=== PATIENT | female | born 1940 | race Caucasian/White ===

== ENCOUNTER → 2016-11-29 | Outpatient (CLI) | payer MEDICARE ==
[~2016-11-29] MED LIST: ALPR0.5T3 PO; CITRTAB7 PO; LISI-515 PO; LOVA40TA PO; METO50TA11 PO; MIRA33504 PO; OMEP40CA2 PO; RANI150T PO; SERT-129 PO; ULTR50TA5 PO; ZETI10TA5 PO
[2016-11-29 12:14] LABS: AUTOMATED NEUTROPHIL # 2.9 TH/MM3 (1.8-7.7); BASOPHIL % 0.3 % (0.0-2.0); EOSINOPHIL # 0.1 TH/MM3 (0-0.4); EOSINOPHIL % 1.3 % (0.0-4.0); HEMATOCRIT 36.9 % (35.0-46.0); HEMO FLAGS DIFF FINAL; LYMPH % 27.8 % (9.0-44.0); LYMPHOCYTE # 1.3 TH/MM3 (1.0-4.8); MEAN CELL VOLUME 83.2 FL (80.0-100.0); MEAN CORPUSCULAR HEMOGLOBIN 27.4 PG (27.0-34.0); MEAN CORPUSCULAR HGB CONC 32.9 % (32.0-36.0); NEUT % 61.6 % (16.0-70.0); PLATELET COUNT 187 TH/MM3 (150-450); RED BLOOD COUNT 4.43 MIL/MM3 (4.00-5.30); RED CELL DISTRIBUTION WIDTH 14.3 % (11.6-17.2); WHITE BLOOD COUNT 4.6 TH/MM3 (4.0-11.0)
[2016-11-29 12:20] LABS: APTT (PATIENT) 24.3 SEC (24.3-30.1); INTERNATIONAL NORMALIZED RATIO 0.9 RATIO; PROTHROMBIN TIME - PATIENT 10.1 SEC (9.8-11.6)
[2016-11-29 12:44] LABS: ALKALINE PHOSPHATASE 39 U/L (45-117); ALT (GPT) 21 U/L (10-53); ANION GAP 6 MEQ/L (5-15); AST (GOT) 19 U/L (15-37); BICARBONATE 30.3 MEQ/L (21.0-32.0); BLOOD UREA NITROGEN 20 MG/DL (7-18); CHLORIDE 105 MEQ/L (98-107); GLOMERULAR FILTRATION RATE 70 ML/MIN (>89); GLUCOSE,FASTING 86 MG/DL (74-99); POTASSIUM 4.1 MEQ/L (3.5-5.1); SODIUM (NA) 141 MEQ/L (136-145); TOTAL BILIRUBIN ADULT 0.6 MG/DL (0.2-1.0)
--- NOTE | 2016-11-29 13:18 | RADRPT ---
EXAM DATE/TIME: 11/29/2016 12:34 [place] COMPARISON: No previous studies available for comparison. INDICATIONS : Evaluate for pneumonia, pneumothorax, or communicable disease. Pre op for ovarian surgery. Patient s tated no chest complaints at this time. MEDICAL HISTORY : None. SURGICAL HISTORY : None. ENCOUNTER: Initial ACUITY: 1 day PAIN SCORE: 0/10 LOCATION: Bilateral chest FINDINGS: PA and lateral views of the chest demonstrate a normal-sized cardiac silhouette. There is no effusion , consolidation, or pneumothorax. The bones and soft tissues demonstrate no acute abnormality. Cholec ystectomy clips are present. CONCLUSION: No acute cardiopulmonary abnormality is identified. Pavel Titus MD on November 29, 2016 at 13:15 Board Certified Radiologist. This report was verified electronically.
--- NOTE | 2016-11-30 10:46 | EKG ---
Date Performed: 11/29/2016 Time Performed: 11:56:37 PTAGE: 76 years EKG: Sinus rhythm NORMAL ECG NO PREVIOUS TRACING DOCTOR: Octavia Hassan Interpretating Date/Time 11/30/2016 10:43:44
== END ==
LOC: CPRE 11:19
PROVIDERS: ATTEND Obstetrics & Gynecology Gynecologic Oncology
DX: Z01.810 Encounter for preprocedural cardiovascular examination (principal); R19.05 Periumbilic swelling, mass or lump; Z01.812 Encounter for preprocedural laboratory examination; Z01.818 Encounter for other preprocedural examination
CPT/HCPCS: 36415; 71020; 80053; 85025; 85610; 85730; 93005

== ENCOUNTER 2016-12-22 08:35 | Observation (INO) | payer MEDICARE ==
[~2016-12-22] VITALS: Ht 152.4 cm; Wt 56.3 kg
[~2016-12-22 08:35] MED LIST changes: -ULTR50TA5 PO
[2016-12-22] MEDS ORDERED: HEPARIN SODIUM - SQ 10,000 UNITS/ML VIAL SQ SCH (09:00)
[2016-12-22] MEDS ORDERED: LEVOFLOXACIN 500 MG PREMIX INJ 100 ML IV SCH (09:00)
[2016-12-22] MEDS ORDERED: METRONIDAZOLE 500 MG/100 ML ISONTONIC SOLN IV SCH (09:00)
[2016-12-22] MEDS ORDERED: POVIDONE IODINE 5% (ANTISEPSIS KIT) 4 APPLICATIONS EACH NARE PRN (09:15)
[2016-12-22] MEDS ORDERED: METOPROLOL TARTRATE 25 MG TAB PO PRN (09:15)
[2016-12-22] MEDS ORDERED: LACTATED RINGER'S 1000 ML IV PRN (09:15)
[2016-12-22] MEDS ORDERED: SODIUM CHLORID 0.9% 500 ML IV PRN (09:15)
[2016-12-22] MEDS ORDERED: INSULIN HUMAN REGULAR 1,000 UNITS/10 ML VIAL SQ PRN (09:15)
[2016-12-22] MEDS ORDERED: CHLORHEXIDINE GLUCONATE 2 % 1 PACK (2 CLOTHS) TOPICAL PRN (09:15)
[2016-12-22 09:26] VITALS: BP 144/66; PULSE 69; RESP 16; TEMP 98.4; O2SAT 97
[2016-12-22] MEDS ORDERED: ONDANSETRON HCL 4 MG/2 ML VIAL IV PUSH ONE (10:02)
[2016-12-22] MEDS ORDERED: KETOROLAC TROMETHAMINE 60 MG/2 ML (IM) VIAL IM ONE (10:02)
[2016-12-22] MEDS ORDERED: ePHEDrine/NS 25 MG/5 ML SYR IV ONE (10:02)
[2016-12-22] MEDS ORDERED: PROPOFOL 200 MG/20 ML AMP IV ONE (10:02)
[2016-12-22] MEDS ORDERED: NORMOSOL R INJ 1,000 ML IV ONE (10:03)
[2016-12-22] MEDS ORDERED: LIDOCAINE 1%/EPINEPHrine 1:100,000 SOLN 50 ML VIAL ONE (10:45)
[2016-12-22] MEDS ORDERED: ACETAMINOPHEN 1000 MG/100 ML VIAL IV ONE (10:56)
[2016-12-22] MEDS ORDERED: SUGAMMADEX SODIUM 200 MG/2 ML VIAL IV PUSH ONE ×2 (10:56)
[2016-12-22] MEDS ORDERED: FAMOTIDINE 20 MG/2 ML VIAL ONE (10:56)
[2016-12-22] MEDS ORDERED: HYDROmorphone HCL PF 2 MG/ML VIAL ONE (10:57)
[2016-12-22] MEDS ORDERED: fentaNYL CITRATE 250 MCG/5 ML AMP ONE (14:58)
[2016-12-22] MEDS ORDERED: ONDANSETRON HCL 4 MG/2 ML VIAL IVP PRN (15:15)
[2016-12-22] MEDS ORDERED: ALPRAZolam 0.5 MG TAB PO PRN (15:15)
[2016-12-22] MEDS ORDERED: diphenhydrAMINE HCL 25 MG CAP PO PRN (15:15)
[2016-12-22] MEDS ORDERED: SODIUM CHLORIDE 0.9% FLUSH 10 ML FLUSH IV FLUSH PRN (15:15)
[2016-12-22] MEDS ORDERED: DO NOT ADM ANY ANTICOAGULANT DRUGS PRN (15:25)
[2016-12-22] MEDS ORDERED: *HYDROmorphone PF 1 MG VIAL PERIprocedural Use ONLY ONE (15:55)
[2016-12-22 16:00] VITALS: BP 138/66; PULSE 80; RESP 16; TEMP 97.5; O2SAT 98
[2016-12-22] MEDS ORDERED: D5-1/2 NS + KCL 20 MEQ INJ 1,000 ML IV SCH (16:00)
[2016-12-22] MEDS: KETOROLAC TROMETHAMINE 30 MG/ML (IVP) VIAL IVP SCH ×2 (16:00→21:50)
[2016-12-22] MEDS: traMADol HCL 50 MG TAB PO PRN ×2 (17:54→21:49)
[2016-12-22 20:00] VITALS: BP 139/64; PULSE 84; RESP 16; TEMP 97.8; O2SAT 98
[2016-12-22] MEDS: SODIUM CHLORIDE 0.9% FLUSH 10 ML FLUSH IV FLUSH SCH (20:26)
[2016-12-23] VITALS: BP 141/70; PULSE 78; RESP 15; TEMP 98.9; O2SAT 98
[2016-12-23] MEDS: traMADol HCL 50 MG TAB PO PRN (02:04)
[2016-12-23 04:00] VITALS: BP 124/51; PULSE 79; RESP 15; TEMP 97.3; O2SAT 98
[2016-12-23] MEDS: KETOROLAC TROMETHAMINE 30 MG/ML (IVP) VIAL IVP SCH ×2 (04:50→09:40)
[2016-12-23 06:57] LABS: AUTOMATED NEUTROPHIL # 5.8 TH/MM3 (1.8-7.7); BASOPHIL % 0.1 % (0.0-2.0); HEMATOCRIT 30.8 % (35.0-46.0); HEMO FLAGS DIFF FINAL; LYMPH % 8.4 % (9.0-44.0); LYMPHOCYTE # 0.6 TH/MM3 (1.0-4.8); MEAN CELL VOLUME 82.8 FL (80.0-100.0); MEAN CORPUSCULAR HEMOGLOBIN 28.3 PG (27.0-34.0); MEAN CORPUSCULAR HGB CONC 34.2 % (32.0-36.0); MONO % 9.3 % (0.0-8.0); NEUT % 82.2 % (16.0-70.0); PLATELET COUNT 148 TH/MM3 (150-450); RED BLOOD COUNT 3.72 MIL/MM3 (4.00-5.30); RED CELL DISTRIBUTION WIDTH 14.8 % (11.6-17.2)
[2016-12-23] MEDS ORDERED: ULTR50TA5 PO (07:25)
[2016-12-23 07:27] LABS: BICARBONATE 26.9 MEQ/L (21.0-32.0); POTASSIUM 3.7 MEQ/L (3.5-5.1)
[2016-12-23 08:00] VITALS: BP 131/56; PULSE 67; RESP 16; TEMP 97.6; O2SAT 92
[2016-12-23] MEDS ORDERED: METOPROLOL SUCCINATE 50 MG EXTENDED RELEASE TAB PO SCH (09:00)
[2016-12-23] MEDS ORDERED: LISINOPRIL 20 MG TAB PO SCH (09:00)
[2016-12-23] MEDS ORDERED: PANTOPRAZOLE SOD 40 MG DELAYED RELEASE TAB PO SCH (09:00)
[2016-12-23] MEDS ORDERED: PRAVASTATIN SOD 40 MG TAB PO SCH (09:00)
[2016-12-23] MEDS ORDERED: EZETIMIBE 10 MG TAB PO SCH (09:00)
[2016-12-23] MEDS ORDERED: SERTRALINE HCL 100 MG TAB PO SCH (09:00)
[2016-12-23] MEDS ORDERED: FAMOTIDINE 20 MG TAB PO SCH (09:00)
[2016-12-23] MEDS: SODIUM CHLORIDE 0.9% FLUSH 10 ML FLUSH IV FLUSH SCH (09:40)
[2016-12-23 09:45] VITALS: BP 124/64
--- NOTE | 2016-12-26 11:38 | MP ---
cc: CELY WOOD MD, KELLY L. MD DATE OF SURGERY 12/22/2016 PREOPERATIVE DIAGNOSIS Complex pelvic mass, prominent uterus. POSTOPERATIVE DIAGNOSES 1. Right ovarian mature cystic teratoma (ruptured). 2. Uterine leiomyomas. 3. Extensive intraperitoneal and pelvic adhesions. PROCEDURE Laparoscopy with extensive lysis of adhesions, robotic-assisted laparoscopic hysterectomy, bilateral salpingo-oophorectomy and extensive lysis of adhesions. SURGEON kAua Ren MD FOAM CASTER Barry heel sprayer first. ANESTHESIA General endotracheal anesthesia. ESTIMATED BLOOD LOSS 200 cc. IV FLUIDS 2400 cc. URINE OUTPUT 650 cc. INTRAPERITONEAL IRRIGATION 5000 cc. HISTORY A 76-year-old female found on exam and imaging to have a complex approximately 4 cm pelvic mass. It did have some radiographic features suggestive of a dermoid. She has been counseled regarding options of clinical and radiographic followup versus surgical intervention. She had presented to the emergency room with fairly acute onset of significant pain; that is when the mass was diagnosed. She has been counseled. She favors definitive surgery. Irrespective of the pathology, she wants a complete hysterectomy. She understands with her prior surgical history we anticipate adhesions. She is seen in the preop holding area where she is again counseled. Her questions were answered. She expresses good understanding and agrees. FINDINGS Upon entry into the peritoneal cavity the omentum is densely adherent to the anterior abdominal wall in multiple locations. She had had prior midline vertical incision as well as laparoscopic gallbladder surgery and the omental adhesions were development representative of these prior surgeries. There were adhesions in the right lower quadrant near the ileocecal region in the pelvis. There was a right ovarian mass approximately 4 cm affixed to the right pelvic sidewall and posterior cul-de-sac. There was capsular disruption with some thick mucinous fluid leaking in the cul-de-sac. It had other characteristics suggestive of a mature teratoma. The cul-de-sac was partially obliterated. The colon was adherent to the left pelvic sidewall and the bladder was densely adherent to the uterus consistent with prior sections. Also the uterus was prominent with multiple small leiomyomas, enlarged relative to the narrow nulliparous pelvic outlet. The peritoneal cavity was without implants. The liver diaphragm edges were smooth. The omentum, large small bowel and adjacent mesentery were normal in that there were no implants, no adenopathy. There were colonic diverticulum without diverticulitis. Frozen section analysis of the ovary showed it to be a mature cystic teratoma. The uterus had leiomyomas, no evidence of malignancy. STATEMENT OF COMPLEXITY The complexity of this case was increased and the surgical time was significantly extended due to extensive adhesions. A significant amount of time was required to lyse adhesions to gain safe access to the peritoneal cavity, to restore normal anatomy and to accomplish surgical objectives. Modifier should be applied accordingly. PROCEDURE The patient was taken to the operating room, placed in dorsal lithotomy position. After general endotracheal anesthesia was administered, time-out was undertaken. The patient was identified by sight recognition and hospital ID bracelet and the proposed procedure was reviewed and confirmed. She was carefully positioned in padded Wild stirrups. Her arms were padded and secured to the side. She was further secured to the operating table with eggcrate padding and tape in across-chest, rsee-yra-pighoggy fashion. All sites were noted to be properly aligned with no malalignments or pressure points. She was carefully prepped and draped below the waist, placed in high lithotomy position. Small right-angle retractors were used for visualization as a normal-size speculum could not be used due to the narrow outlet from a nulliparous pelvis. The cervix was identified, grasped, the uterine cavity was sounded and a small V-Care manipulator was inserted and secured in the usual fashion, a Elizabeth catheter placed in the bladder. She was returned to low lithotomy position. A change of sterile gloves was undertaken and we completed draping in anticipation of laparoscopy. We confirmed that an orogastric tube was in the stomach on suction. With manual elevation of the abdominal wall and direct laparoscopic visualization, a 5-mm cannula was placed in the left upper quadrant. Carbon dioxide gas was insufflated and an atraumatic entry was confirmed. Adhesions were noted as described above. Safe access was present in the right upper quadrant through which an 8-mm cannula was introduced. Sharp and blunt dissection were used to initiate lysis of adhesions to allow for a 12-mm cannula to be placed in the midline above the umbilicus. Additional lysis of adhesion was carried out with sharp dissection, focal point cautery, blunt dissection releasing the omentum from the multifocal attachments to the anterior abdominal wall and then an 8-mm cannula was placed in the left upper quadrant. The original 5-mm cannula was exchanged for an 8-mm cannula. She was placed in steep Trendelenburg position. Peritoneal washings were obtained for cytology. The anatomy was surveyed with findings as described above. Three Ray-Cheyenne sponges were placed around the root of the small bowel mesentery and the robotic system was brought into the operative field and attached in the usual fashion. Monopolar scissors, fenestrated bipolar forceps and ProGrasp manipulators were placed in arms #1, 2 and 3 respectively and I took my place at the surgeon's console. Additional time was spent lysing adhesions with sharp dissection to mobilize the colon from attachments to left pelvic sidewall, to free adhesions from the cul-de-sac, to mobilize the ovary that was fixed against the right sidewall and cul-de-sac. Capsular rupture with fluid leak was noted, so as the ovary was mobilized, it was wrapped within a Ray-Cheyenne sponge to prevent further spills after it was had been detached. The right round ligament was isolated, cauterized, transected. The anterior and posterior leaves of the broad ligament were opened. The right ureter was identified, right infundibulopelvic ligament was isolated. The intervening peritoneum was opened. The infundibulopelvic ligament was cauterized and transected. The right utero-ovarian ligament was isolated, cauterized and transected. The remaining adhesions were removed sharply to free the adnexa which, as described above, was wrapped in a Ray-Cheyenne sponge to prevent further spill or contamination and placed in the right pericolic gutter. Copious irrigation was undertaken to irrigate the pelvis before preceding with the case. The left round ligament was isolated, cauterized, transected. The anterior and posterior leaves of the broad ligament were opened. The colon was mobilized. The left ureter was identified. The left infundibulopelvic ligament was isolated. The intervening peritoneum was opened. The infundibulopelvic ligament was cauterized and transected. Vesicouterine peritoneum was dissected off the lower uterine segment and cervix. There was a very adherent band of scar tissue but the bladder could be mobilized below it. It did allow isolation of the uterine vessels which were skeletonized bilaterally, cauterized and transected as were the cardinal, paracervical and uterosacral ligaments. An additional dissection and attention was then directed toward the scarring of the bladder. Sharp dissection was used to isolate adhesions and take them down in a stepwise fashion until the bladder could be completely . Colpotomy was performed with an incision the cervix from the vagina. Prior to being able to deliver the specimen transvaginally, the uterine size needed to be reduced due to its inability to be delivered transvaginally and myomectomies x 2 were performed and the leiomyomas were placed within another Ray-Cheyenne sponge and placed in the right pericolic gutter. Now colpotomy was performed the cervix from the upper vagina. The specimen was withdrawn transvaginally which included the reduced uterus, cervix, left tube and ovary which were attached. Now an EndoCatch bag was introduced transvaginally. The right tube and ovary within the Ray-Cheyenne sponge were placed in the EndoCatch bag and the two leiomyomas were placed within the EndoCatch bag and delivered transvaginally. The remaining two Ray-Cheyenne sponges were delivered transvaginally and a pneumooccluder balloon was placed in the vagina to maintain pneumoperitoneum. Instruments 1 and 3 were exchanged for needle drivers as a 0 Vicryl suture was introduced. The vaginal cuff was closed starting at the left corner, full-thickness closure including posterior peritoneum, the uterosacral ligament tied via instrument tie. It was held on counter traction as a running full-thickness continuous closure was carried across the vaginal apex to the contralateral corner where it was similarly secured to the uterosacral ligament, posterior peritoneum tied via instrument tie. The needle was cut and removed. The integrity of the bladder was confirmed by filling the bladder with saline dyed with methylene blue. It distended nicely under pressure. There were no weak spots, no extravasation of dye and a good margin between the bladder edge and the vaginal cuff suture line, good peristalsis of ureters bilaterally. The bladder was drained. Additional irrigation was now used in the abdomen and pelvis to ensure complete irrigation. A total of approximately 5 liters of irrigation was used and then suction removed from the peritoneal cavity. Preliminary pathology came back showing benign findings so it was felt that all reasonable surgical objectives in this individual had been completed and attention was directed toward closing. The robotic instruments were removed, the robotic system disengaged from the operative field. I reentered the bedside under sterile condition, closed the 12-mm fascial defect with 0 Vicryl suture using a needle pass apparatus, tied securely it rendered the fascia completely airtight and hemostatic. The remaining cannulas were withdrawn. Carbon dioxide gas was removed from the peritoneal cavity. 3-0 Vicryl subcutaneous and 3-0 Vicryl subcuticular were used to close these incisions. She was returned to dorsal lithotomy position. The vaginal cuff was inspected and noted to be well supported, hemostatic, no vaginal lacerations but with some superficial irritation near the introitu. Some Adán hemostatic agent had been placed across the vaginal cuff and the remaining Adán was placed on the area of superficial vaginal irritation. There was complete hemostasis. There were no remaining foreign objects in the peritoneal cavity or the vagina. Preliminary and final counts were correct. She was returned to dorsal supine position and was pending reversal of anesthesia when I left the operating room to precede her to the Post-Anesthesia Care Unit. MD QUENTIN Muse/SSB /6:54 AM /11:15 AM
--- NOTE | 2016-12-27 12:04 | MD ---
cc: CELY WOOD MD,ORAL Douglas MD ADMISSION DATE: 12/22/2016 DISCHARGE DATE: 12/23/2016 DATE OF PROCEDURE 12/22/2016 PROCEDURE PERFORMED Robotic-assisted laparoscopic hysterectomy, bilateral salpingo-oophorectomy, extensive lysis of adhesions. DIAGNOSES Adnexal mass. Intraperitoneal adhesions. HOSPITAL COURSE She did well during the first 24 hours after surgery. In's and out's 2880/2650. LABS H&H this morning 10.5 and 30.8, white count 7.0, platelets 148,000. Electrolytes pending at the time of this dictation. PHYSICAL EXAMINATION VITAL SIGNS: She is afebrile, pulse 78-81, respirations 12-16, blood pressure 123-141/51-70, O2 saturations 97%. GENERAL: Alert and oriented x 3, in no acute distress. LUNGS: Clear. Mild basilar rales. CARDIOVASCULAR: Controlled rate and rhythm. ABDOMEN: Soft. Incisions clean and dry. MASCARA MOLDER: No bleeding. EXTREMITIES: Nontender. ASSESSMENT Postop day #1, tolerating oral intake. Elizabeth catheter removed, pending voiding. Hemodynamically stable. Preliminary pathology, findings, activity, discussed, reviewed. Questions were answered. PLAN Therefore anticipate discharge to home. She is to contact our office to schedule follow up in two weeks. She is to resume prior medications. Prescription is provided for tramadol and she is to contact our office should she have any questions between now and the time of scheduled followup. MD QUENTIN Muse/YAIMA /7:30 AM /12:01 PM
== END 2016-12-23 12:45 | disposition home or self-care (01) ==
LOC: HSDC 08:35 → HSDI 15:26 → HOCA 17:11
PROVIDERS: ADMIT Obstetrics & Gynecology Gynecologic Oncology; ATTEND Obstetrics & Gynecology Gynecologic Oncology
DX: D25.9 Leiomyoma of uterus, unspecified (principal); D27.0 Benign neoplasm of right ovary; D27.1 Benign neoplasm of left ovary; N73.6 Female pelvic peritoneal adhesions (postinfective); N89.8 Other specified noninflammatory disorders of vagina; K57.30 Diverticulosis of large intestine without perforation or abscess without bleeding; I10 Essential (primary) hypertension
CPT/HCPCS: 00840; 58552; 80048; 85025; 86850; 86900; 86901; 88112; 88305; 88307; 88331; 94150; G0378; J0131; J1170; J1644; J1885; J1956; J2405; J3010; J3480; J7120